=== PATIENT | male | born 1950 | race Caucasian/White ===

== ENCOUNTER 2017-12-08 06:49 | Day surgery (SDC) | payer MEDICARE, OTHER ==
[2017-12-07 09:17] VITALS: BMI 32.1
--- NOTE | 2017-12-08 00:26 | HP ---
HISTORY OF PRESENT ILLNESS: Mr. Lam is a pleasant 67-year-old man presenting for neurogenic claudic ation symptoms. In addition, left lower extremity L5 radicular pattern of pain and tingling. Histor y of this in the past with injections and therapy, hopes to treat this surgically at this time. MRI of disk from [place] reveals severe central canal stenosis at L3-L5, but likely is the culprit of all of his pains. PAST MEDICAL HISTORY: Significant for atrial fibrillation, cerebrovascular accident, hypertension, c oronary arterial disease. CURRENT MEDICATIONS: Gabapentin, nitroglycerin, Aleve, hydrochlorothiazide, warfarin, iron, Celebrex , metoprolol, and diltiazem. ALLERGIES: PENICILLIN. PAST SURGICAL HISTORY: Herniorrhaphy and carpal tunnel release. PHYSICAL EXAMINATION: NEUROLOGIC: Alert and oriented x3. Gait is significantly antalgic. Lower extremity motor exam is n ormal. ASSESSMENT: Neurogenic claudication and lumbar back pain. PLAN: Dr. Gonzalez met with the patient, reviewed imaging and advocated for L3 through L5 laminectomy. He explained to the patient the risks, benefits, and alternatives of the procedure. The patient exp ressed understanding and would like to move forward with surgery as discussed. I do believe the leo ent is mentally competent and capable of making medical decisions for himself and we will move forwar d with surgery as planned. Neeraj Carreno PA-C, dictating for Dr. Gonzalez.
[2017-12-08 07:42] LABS: Hemoglobin 16.1 g/dL (14.0-18.0); Mean Corpuscular HGB CONC 31.9 g/dL (32.0-36.0); Mean Corpuscular Hemoglobin 32.7 pg (27.0-31.0); Mean Platelet Volume 7.2 fL (7.4-10.4); Platelet Count 125 thou/uL (130-400); RBC Distribution Width 12.9 % (11.5-14.5); Red Blood Cell (RBC) Count 4.94 mill/uL (4.70-6.10); White Blood Cell (WBC) Count 3.5 thou/uL (4.8-10.8)
[2017-12-08 07:53] LABS: Anion Gap 13 mmol/L (10-20); BUN (Urea Nitrogen) 26 mg/dL (8.4-25.7); Calc. Creatinine Clearance 75 mL/min (70-130); Calcium 9.6 mg/dL (7.8-10.44); Carbon Dioxide 30 mmol/L (23-31); Chloride 102 mmol/L (98-107); Estimated GFR-MDRD 50; Glucose 104 mg/dL (80-115); Potassium 4.4 mmol/L (3.5-5.1); Sodium 141 mmol/L (136-145)
[2017-12-08 07:54] LABS: Prothrombin Time 13.1 SEC (12.0-14.7)
[2017-12-08] MEDS ORDERED: Clindamycin/D5W 900 mg/50 ml Premix Bag ONE (08:19)
[2017-12-08] MEDS ORDERED: Levofloxacin 500 mg/D5W 100 ml Premix Bag ONE (08:20)
[2017-12-08] MEDS ORDERED: Bupivacaine HCl 0.5%/Epinephrine 1:200,000/PF 30 ml Vial ONE (08:30)
[2017-12-08] MEDS ORDERED: Thrombin 5000 UNITS/5 ML VIAL ONE (08:30)
[2017-12-08] MEDS ORDERED: Midazolam HCl 2 mg/2 ml Vial ONE (08:36)
[2017-12-08] MEDS ORDERED: Fentanyl 100 MCG/2 ML VIAL ONE (08:36)
[2017-12-08] MEDS ORDERED: Lidocaine 1% PF 5 ML VIAL ONE (10:15)
[2017-12-08] MEDS ORDERED: Dexamethasone 20 MG/5 ML VIAL ONE (10:15)
[2017-12-08] MEDS ORDERED: ePHEDrine/0.9% NaCl/PF SYRINGE 50 mg/10 ml ONE (10:15)
[2017-12-08] MEDS ORDERED: Ondansetron HCl/PF 4 MG/2 ML Vial ONE (10:15)
[2017-12-08] MEDS ORDERED: PROPOFOL 200 MG/20 ML VIAL ONE (10:15)
[2017-12-08] MEDS ORDERED: Glycopyrrolate 0.2 MG/ML 5 ML SYRINGE ONE (10:15)
--- NOTE | 2017-12-08 11:47 | OP ---
DATE OF PROCEDURE: 12/08/2017 SURGEON: Manjit Gonzalez M.D. HAM MARKER: Neeraj Carreno PA-C. INDICATION: Pain. DIAGNOSIS: Lumbar stenosis. PROCEDURE: L3 through L5 lumbar decompression. ANESTHESIA: General. TECHNIQUE: The patient was brought into the operating room and placed under general anesthesia. He was flipped from a supine or prone position on the operating room table. A linear incision was plann ed spanning L3-L5. After prepping and draping and after an appropriate operative pause, the incision was created. Soft tissues were swept away from midline. Self-retaining retractors were placed in t he wound for optimal exposure. After confirming the appropriate levels with C-arm fluoroscopy, an Ad son rongeur was used to remove the spinous process of L4, the superior half of L5 and the inferior as pect of L3. High-speed cutting drill bit as well as 2, 3 and 4-mm Kerrisons were then used to comple te the laminectomy which included the medial aspect of the facet joints. After completely decompress ing the central canal and lateral recesses, the wound was irrigated. Hemostasis was maintained throu ghout. The wound was then closed in anatomic layers and a pressure dressing was applied. There were no known procedural complications.
[2017-12-08] MEDS ORDERED: Acetaminophen/Codeine 30-300mg Tablet ONE (13:23)
== END 2017-12-08 13:35 | disposition home or self-care (01) ==
LOC: SDC 06:49
PROVIDERS: ATTEND Neurological Surgery
PROC: 0ST20ZZ Resection of Lumbar Vertebral Disc, Open Approach (ICD-10-PCS; principal; 2017-12-08)
PROC: 01NB0ZZ Release Lumbar Nerve, Open Approach (ICD-10-PCS; 2017-12-08)
DX: M48.062 Spinal stenosis, lumbar region with neurogenic claudication (principal); I48.91 Unspecified atrial fibrillation; I25.10 Atherosclerotic heart disease of native coronary artery without angina pectoris; I10 Essential (primary) hypertension; Z88.0 Allergy status to penicillin; Z79.01 Long term (current) use of anticoagulants; Z79.899 Other long term (current) drug therapy
CPT/HCPCS: 36415; 76001; 80048; 85027; 85610; 85730; J0670; J1100; J1956; J2001; J2250; J2405; J2704; J3010; J3490

== ENCOUNTER 2018-04-26 13:52 | Outpatient (CLI) | payer MEDICARE, OTHER ==
--- NOTE | 2018-04-26 15:21 | RAD ---
LEFT HIP 2 VIEWS: HISTORY: Back pain and left hip pain. FINDINGS: Mild degenerative changes of the hip. Femoral head contour is maintained. There is no evidence of f racture. IMPRESSION: No acute osseous abnormality. POS: [facility]
== END 2018-04-26 13:53 | disposition home or self-care (01) ==
LOC: TBSIIMAG 13:52
PROVIDERS: ATTEND Neurological Surgery
DX: M54.5 Low back pain (principal)

== ENCOUNTER 2018-05-30 09:41 | Outpatient (CLI) | payer MEDICARE, OTHER ==
--- NOTE | 2018-05-30 12:19 | MRI ---
MRI LUMBAR SPINE WITH AND WITHOUT CONTRAST: HISTORY: M54.16, lumbar radiculopathy. COMPARISON: None. FINDINGS: The aortic contour is nonaneurysmal. No retroperitoneal adenopathy. No hydronephrosis. No marrow i nfiltrative process. The conus medullaris terminates near the superior endplate of L1. Laminectomy changes at L4-L5. Levels are as follows: T12-L1: Low grade circumferential disk bulge. Mild degenerative disk space height loss. Mild facet arthropathy. Mild neural foraminal narrowing. L1-L2: Circumferential disk osteophyte complex. Moderate facet arthrosis. Mild increased posterior epidural fat. The spinal canal measures approximately 5 mm. There is moderate bilateral neural for aminal narrowing. L2-L3: Severe degenerative disk space height loss, near completely. Circumferential osteophyte is p resent. There is mild ligamentum flavum hypertrophy. The spinal canal is narrowed to approximately 5 mm. There is also moderate to severe bilateral neural foraminal narrowing with abutment of both ex iting nerve roots. L3-L4: Moderate posterior degenerative disk space height loss. Posterior disk osteophyte complex. There are severe hypertrophic facet changes. The combination of these findings causes moderate to se sravani bilateral neural foraminal narrowing with abutment of both exiting and traversing nerve roots. The spinal canal is narrowed to approximately 5 mm. L4-L5: There is a broad-based posterior disk bulge. Hypertrophic facet changes with large effusions within both facet joints. There is severe bilateral neural foraminal narrowing with abutment of the exiting and traversing nerve roots bilaterally. L5-S1: There is a broad-based posterior disk osteophyte complex. Moderate facet arthropathy. Effus ions are present in the left facet joint. There is moderate bilateral neural foraminal narrowing. IMPRESSION: Multilevel neural foramina and spinal canal narrowing, as described above. POS: [facility]
== END 2018-05-30 09:42 | disposition home or self-care (01) ==
LOC: TBSIIMAG 09:41
PROVIDERS: ATTEND Neurological Surgery
DX: M54.16 Radiculopathy, lumbar region (principal); M48.061 Spinal stenosis, lumbar region without neurogenic claudication; M48.07 Spinal stenosis, lumbosacral region
CPT/HCPCS: 72158; 82565